=== PATIENT | female | born 1995 | race Caucasian/White ===

== ENCOUNTER 2022-12-12 02:57 | Emergency (ER) | payer BC ==
[~2022-12-12] VITALS: Ht 162.6 cm; Wt 49.9 kg
[2022-12-12 03:11] VITALS: TEMP 98.9
[2022-12-12 03:41] VITALS: BP 116/70; O2SAT 100
== END 2022-12-12 03:48 | disposition home or self-care (01) ==
LOC: ER 03:07
DX: F10.129 Alcohol abuse with intoxication, unspecified (principal); Y90.9 Presence of alcohol in blood, level not specified